=== PATIENT | male | born 1990 | race Caucasian/White ===

== ENCOUNTER 2017-06-29 11:20 | Emergency (ER) | payer MEDICAID ==
[~2017-06-29] VITALS: Ht 165.1 cm; Wt 104.3 kg
[~2017-06-29 11:20] MED LIST: ECO81 PO; METOPROLOL TART25 M1 PO; ZES5 PO; ZOC10 PO
[2017-06-29 11:28] VITALS: Ht 165.1 cm; Wt 104.3 kg
[2017-06-29 14:30] VITALS: BP 127/79
== END 2017-06-29 15:37 | disposition home or self-care (01) ==
LOC: ED 11:20
DX: J11.1 Influenza due to unidentified influenza virus with other respiratory manifestations (principal); E78.00 Pure hypercholesterolemia, unspecified
CPT/HCPCS: Q0092

== ENCOUNTER 2018-11-06 01:39 | Emergency (ER) | payer MEDICAID ==
[~2018-11-06] VITALS: Ht 170.2 cm; Wt 113.2 kg
[2018-11-06 02:16] LABS: BASOPHIL % 0.4 % (0-2); PLATELET COUNT 231 x10^3mcL (130-400)
[2018-11-06 02:17] LABS: RED CELL DISTRIBUTION WIDTH 14.7 % (11.5-14.5)
[2018-11-06 02:29] LABS: CALCIUM 8.6 mg/dL (8.5-10.1); CHLORIDE SERUM 107 mmol/L (98-107); CREATININE SERUM 0.9 mg/dL (0.7-1.3); GFR1 > 60 mL/min; GLUCOSE SERUM 105 mg/dL (74-106); POTASSIUM SERUM 3.8 mmol/L (3.5-5.1); SODIUM SERUM 142 mmol/L (136-145)
[2018-11-06 04:33] VITALS: BP 110/42
== END 2018-11-06 04:33 | disposition home or self-care (01) ==
LOC: ED 01:39
PROVIDERS: Emergency Medicine
DX: J02.9 Acute pharyngitis, unspecified (principal); R07.89 Other chest pain
CPT/HCPCS: J1100; J1885; Q0092

== ENCOUNTER 2019-11-16 13:43 | Emergency (ER) | payer SELFPAY ==
[~2019-11-16] VITALS: Ht 182.9 cm; Wt 108.9 kg
[2019-11-16 14:09] VITALS: Ht 182.9 cm; Wt 108.9 kg
[2019-11-16 15:06] LABS: BASOPHIL % 0.2 % (0-2); PLATELET COUNT 140 x10^3mcL (130-400); RED CELL DISTRIBUTION WIDTH 14.1 % (11.5-14.5)
[2019-11-16 15:56] LABS: CALCIUM 8.5 mg/dL (8.5-10.1); CARBON DIOXIDE 25.4 mmol/L (21-32); CHLORIDE SERUM 97 mmol/L (98-107); CREATININE SERUM 1.3 mg/dL (0.7-1.3); GFR1 > 60 mL/min; GLUCOSE SERUM 100 mg/dL (74-106); POTASSIUM SERUM 3.9 mmol/L (3.5-5.1); SODIUM SERUM 134 mmol/L (136-145)
[2019-11-16 16:09] LABS: ALBUMIN 3.8 g/dL (3.4-5.0); ALKALINE PHOSPHATASE 64 U/L (46-116); ALT/SGPT 109 U/L (16-63); AST/SGOT 79 U/L (15-37); BILIRUBIN TOTAL 0.8 mg/dL (0.20-1.00); C REACTIVE PROTEIN 3.8 mg/dL (<=0.9); LACTIC DEHYDROGENASE (LDH) 402 U/L (100-190); TOTAL PROTEIN, SERUM 7.7 g/dL (6.4-8.2)
[2019-11-16 17:22] VITALS: BP 113/51
== END 2019-11-16 17:22 | disposition home or self-care (01) ==
LOC: ED 13:43
PROVIDERS: Emergency Medicine
DX: U07.1 COVID-19 (principal); J12.89 Other viral pneumonia
CPT/HCPCS: 36600; 83880; 85378; 87804; C9803-CS; J0456; J0696; J7030; J7050; J7060; Q0092; U0003-CS

== ENCOUNTER 2020-02-03 17:19 | Emergency (ER) | payer MEDICAID, SELFPAY ==
[~2020-02-03] VITALS: Ht 172.7 cm; Wt 104.3 kg
[2020-02-03 17:21] VITALS: Ht 172.7 cm; Wt 104.3 kg
[2020-02-03 19:03] VITALS: BP 146/94
== END 2020-02-03 19:03 | disposition home or self-care (01) ==
LOC: ED 17:19
DX: J03.90 Acute tonsillitis, unspecified (principal)
CPT/HCPCS: J0696; J1100; U0003-CS